=== PATIENT | female | born 1995 ===

== ENCOUNTER 2016-10-07 07:35 | Emergency (ER) | payer MEDICAID ==
[2016-10-07 07:55] VITALS: RESP 16; O2SAT 100
--- NOTE | 2016-10-07 08:36 | ED PDOC ---
HPI: Abdomen Time Seen by Provider: 10/07/16 07:45 Chief Complaint (Nursing): Abdominal Pain Chief Complaint (Provider): Abdominal Pain History Per: Patient History/Exam Limitations: no limitations Onset/Duration Of Symptoms: Hrs Current Symptoms Are (Timing): Still Present Severity: Mild Location Of Pain/Discomfort: Epigastric Quality Of Discomfort: Cramping, "Pain" Associated Symptoms: Nausea, Vomiting, Diarrhea Exacerbating Factors: None Alleviating Factors: None Additional Complaint(s): Patient is a 21 year old female who presents to ED for evaluation of abdominal pain that began last night. Pain is described as epigastric, constant, associated with nausea, vomiting and diarrhea. Notes pain has worsened, denies radiation of pain, fever, chills or bloody stools. Past Medical History Reviewed: Historical Data, Nursing Documentation, Vital Signs Vital Signs: Last Vital Signs Temp 97.3 F L 10/07/16 14:21 Pulse 78 10/07/16 14:21 Resp 16 10/07/16 14:21 BP 110/70 10/07/16 14:21 Pulse Ox 100 10/07/16 14:21 - Medical History PMH: Anemia (IRON DEFICIENCY), Asthma - Surgical History Surgical History: Tonsillectomy, - Family History Family History: States: No Known Family Hx - Living Arrangements Living Arrangements: With Family - Home Medications Home Medications: Ambulatory Orders Medication Instructions Recorded Cephalexin [Keflex] 500 mg PO BID #10 cap 10/26/14 Ibuprofen [Motrin] 600 mg PO Q6 PRN #10 tab 10/26/14 Ibuprofen [Motrin Tab] 600 mg PO Q6 #20 tab 06/22/15 Ondansetron ODT [Zofran ODT] 4 mg PO Q8 PRN #12 odt 10/07/16 - Allergies Allergies/Adverse Reactions: Allergies Allergy/AdvReac Type Severity Reaction Status Date / Time sulfamethoxazole Allergy unknown Verified 06/22/15 20:15 [From Bactrim] trimethoprim [From Bactrim] Allergy unknown Verified 06/22/15 20:15 Review of Systems ROS Statement: Except As Marked, All Systems Reviewed And Found Negative Constitutional: Negative for: Fever, Chills Cardiovascular: Negative for: Chest Pain Respiratory: Negative for: Shortness of Breath Gastrointestinal: Positive for: Nausea, Vomiting, Abdominal Pain, Diarrhea. Negative for: Melena, Hematochezia, Hematemesis Genitourinary Female: Negative for: Dysuria, Hematuria Musculoskeletal: Negative for: Back Pain Neurological: Negative for: Weakness, Numbness Physical Exam - Reviewed Nursing Documentation Reviewed: Yes Vital Signs Reviewed: Yes - Physical Exam Appears: Positive for: Non-toxic, No Acute Distress Skin: Positive for: Normal Color, Warm Eye Exam: Positive for: Normal appearance Neck: Positive for: Normal, Painless ROM Gastrointestinal/Abdominal: Positive for: Soft, Tenderness (mild peigastric). Negative for: Distended, Guarding, Rebound Back: Positive for: Normal Inspection Extremity: Positive for: Normal ROM Neurologic/Psych: Positive for: Alert, Oriented - Laboratory Results Result Diagrams: 10/07/16 08:38 10/07/16 08:38 - ECG O2 Sat by Pulse Oximetry: 100 (RA) Pulse Ox Interpretation: Normal (A) - Progress Re-evaluation Time: 14:00 Condition: Re-examined, Improved Medical Decision Making Medical Decision Making: Time: 0810 Initial impression: Abdominal pain r/o gastroenteritis vs pancreatitis vs other abdominal pathology considered Initial plan: -- CMP -- Lipase -- Urine preg -- Urine dip -- CBC -- Bentyl and Zofran Time: 1245 CT- Abdomen Impression: Nonspecific mesenteric adenitis. Mild fatty infiltration of the liver. Mild sigmoid diverticulitosis without evidence of diverticulitis. Minimal Fluid in cul-de-sac, non specific. No other significant abnormality. Scribe Attestation: Documented by Pamela Green acting as a scribe for Casper Joseph MD MD Scribe Attestation: All medical record entries made by the Scribe were at my direction and personally dictated by me. I have reviewed the chart and agree that the record accurately reflects my personal performance of the history, physical exam, medical decision making, and the department course for this patient. I have also personally directed, reviewed, and agree with the discharge instructions and disposition. Disposition - Clinical Impression Clinical Impression: Mesenteric adenitis, Abdominal pain in female - Patient ED Disposition Is Patient to be Admitted: No Doctor Will See Patient In The: Office Counseled Patient/Family Regarding: Studies Performed, Diagnosis, Need For Followup - Disposition Referrals: [facility] [Outside] Disposition: Routine/Home Disposition Time: 14:11 Condition: GOOD Additional Instructions: Take medications as instructed. Take advil for pain. Follow up with your PCP in 2-3 days. Prescriptions: Ondansetron ODT [Zofran ODT] 4 mg PO Q8 PRN #12 odt PRN Reason: Nausea/Vomiting Instructions: Gastroenteritis (ED), Mesenteric Adenitis (ED)
[2016-10-07 08:41] LABS: BASO % 0.5 % (0.0-2.0); EOS # 0.3 K/uL (0.0-0.7); EOS % 4.8 % (0.0-4.0); HEMATOCRIT 37.2 % (34.0-47.0); LYMPH # 1.6 K/uL (1.0-4.3); LYMPH % 22.6 % (20.0-40.0); MEAN CORPUSCULAR HEMOGLOBIN 25.3 pg (27.0-31.0); MEAN CORPUSCULAR HGB CONC 32.4 g/dL (33.0-37.0); MEAN PLATELET VOLUME 6.8 fl (7.2-11.7); MONO # 0.4 K/uL (0.0-0.8); MONO % 5.5 % (0.0-10.0); NEUT # 4.8 K/uL (1.8-7.0); NEUT % 66.6 % (50.0-75.0); RED CELL DISTRIBUTION WIDTH 14.6 % (11.5-14.5); WHITE BLOOD COUNT 7.3 K/uL (4.8-10.8)
[2016-10-07 08:57] LABS: ALB/GLOB RATIO 1.3 (1.0-2.1); ALKALINE PHOSPHATASE 60 U/L (38-126); ALT/SGPT 51 U/L (9-52); AST/SGOT 33 U/L (14-36); BILIRUBIN,TOTAL 0.6 mg/dl (0.2-1.3); BLOOD UREA NITROGEN 8 mg/dl (7-17); CALCIUM 9.4 mg/dL (8.4-10.2); CARBON DIOXIDE 25 mmol/L (22-30); CHLORIDE 103 mmol/L (98-107); GFR AFRICAN-AMERICAN > 60; GLUCOSE,RANDOM 97 mg/dL (65-105); LIPASE 47 U/L (23-300); SODIUM 139 mmol/l (132-148); TOTAL PROTEIN 7.9 G/DL (6.3-8.2)
[2016-10-07] MEDS ORDERED: Sodium Chloride 0.9% 50 ML IV ONE (11:37)
[2016-10-07] MEDS ORDERED: Iohexol 300 100 ML IJ ONE (11:37)
--- NOTE | 2016-10-07 12:24 | CT ---
PROCEDURE: CT Abdomen and Pelvis with contrast HISTORY: abdominal pain v/d COMPARISON: None. TECHNIQUE: Contrast dose: 100 mL Omnipaque 300 Radiation dose: Total exam DLP = 969.34 mGy-cm. This CT exam was performed using one or more of the following dose reduction techniques: Automated exposure control, adjustment of the mA and/or kV according to patient size, and/or use of iterative reconstruction technique. FINDINGS: LOWER THORAX: Unremarkable. LIVER: Normal size and contour. Diffusely diminished attenuation consistent with fatty infiltration. No mass. No biliary dilatation. GALLBLADDER AND BILE DUCTS: Unremarkable. PANCREAS: Unremarkable. No gross lesion or ductal dilatation. SPLEEN: Unremarkable. ADRENALS: Unremarkable. No mass. KIDNEYS AND URETERS: Unremarkable. No hydronephrosis. No solid mass. VASCULATURE: Unremarkable. No aortic aneurysm. BOWEL: Mild sigmoid diverticulosis. No evidence of diverticulitis. No bowel obstruction. No other abnormal bowel loops. APPENDIX: Normal appendix. PERITONEUM: Minimal fluid in cul-de-sac, nonspecific. LYMPH NODES: No retroperitoneal or pelvic lymphadenopathy. There are shotty subcentimeter nodes in the small bowel mesenteric and medial to the cecum and ascending colon, consistent with nonspecific mesenteric adenitis. BLADDER: Unremarkable. REPRODUCTIVE: Unremarkable uterus. No adnexal masses. BONES: No acute fracture. OTHER FINDINGS: None. IMPRESSION: Nonspecific mesenteric adenitis. Mild fatty infiltration of the liver. Mild sigmoid diverticulosis without evidence of diverticulitis. Minimal fluid in cul-de-sac, nonspecific. No other significant abnormality.
[2016-10-07 14:22] VITALS: BP 110/70; PULSE 78; TEMP 97.3
== END 2016-10-07 14:22 | disposition home or self-care (01) ==
LOC: H.ER 07:35
DX: I88.0 Nonspecific mesenteric lymphadenitis (principal); R10.9 Unspecified abdominal pain
CPT/HCPCS: 74177; 80053; 81025; 83690; 85025; 96374; 96375; 99282; J2270; J2405; Q9967

== ENCOUNTER 2016-10-09 01:35 | Emergency (ER) | payer MEDICAID ==
[2016-10-09 02:14] VITALS: BP 132/92; PULSE 76; RESP 17; TEMP 98.2; O2SAT 100
[2016-10-09 03:16] LABS: RBC URINE 2 /hpf (0-3); URINE BILIRUBIN NEGATIVE (NEGATIVE); URINE BLOOD MODERATE (NEGATIVE); URINE COLOR YELLOW (YELLOW); URINE GLUCOSE (UA) NEG (Normal); URINE KETONE NEGATIVE (NEGATIVE); URINE LEUKOCYTE ESTERASE NEG Leu/uL (Negative); URINE PROTEIN NEGATIVE (NEGATIVE); URINE UROBILINOGEN 0.2-1.0 mg/dL (0.2-1.0); WBC URINE < 1 /hpf (0-5)
[2016-10-09] MEDS ORDERED: Sodium Chloride 0.9% 1,000 ML IV STA (03:18)
[2016-10-09 03:25] LABS: BASO # 0.1 K/uL (0.0-0.2); BASO % 0.7 % (0.0-2.0); EOS # 0.4 K/uL (0.0-0.7); EOS % 5.4 % (0.0-4.0); HEMATOCRIT 35.8 % (34.0-47.0); LYMPH # 2.2 K/uL (1.0-4.3); MEAN CELL VOLUME 78.2 fl (81.0-99.0); MEAN CORPUSCULAR HEMOGLOBIN 25.8 pg (27.0-31.0); MEAN PLATELET VOLUME 7.1 fl (7.2-11.7); MONO # 0.6 K/uL (0.0-0.8); MONO % 7.5 % (0.0-10.0); NEUT # 4.7 K/uL (1.8-7.0); NEUT % 58.4 % (50.0-75.0); NRBC % 0.1 % (0.0-0.0); RED CELL DISTRIBUTION WIDTH 14.6 % (11.5-14.5)
[2016-10-09 03:42] LABS: ALB/GLOB RATIO 1.4 (1.0-2.1); ALKALINE PHOSPHATASE 55 U/L (38-126); ALT/SGPT 49 U/L (9-52); AST/SGOT 46 U/L (14-36); BILIRUBIN,TOTAL 0.4 mg/dl (0.2-1.3); BLOOD UREA NITROGEN 12 mg/dl (7-17); CARBON DIOXIDE 26 mmol/L (22-30); CHLORIDE 103 mmol/L (98-107); GFR AFRICAN-AMERICAN > 60; GLUCOSE,RANDOM 107 mg/dL (65-105); LIPASE 49 U/L (23-300); POTASSIUM 3.6 MMOL/L (3.6-5.0); SODIUM 140 mmol/l (132-148); TOTAL PROTEIN 7.9 G/DL (6.3-8.2)
--- NOTE | 2016-10-09 04:42 | ED PDOC ---
HPI: Abdomen Time Seen by Provider: 10/09/16 02:51 Chief Complaint (Nursing): Abdominal Pain Chief Complaint (Provider): Abdominal Pain History Per: Patient History/Exam Limitations: no limitations Onset/Duration Of Symptoms: Days (3 days) Outside of [place] travel?: No Current Symptoms Are (Timing): Still Present Location Of Pain/Discomfort: Epigastric Associated Symptoms: Vomiting (non bloody, non bilious), Diarrhea (non bloody) Additional Complaint(s): Lyndsey Soriano, a 21 year old female, who has a history of polycystic ovary disease, presents to the ED complaining of epigastric pain which she has been experiencing for the past 3 days. The patient reports she was seen in the Ed 2 days ago for non specific abdominal pain and was discharged. She says since then her symptoms have worsened. The patient states she has had non bloody diarrhea and 2-3 episodes of vomiting (non bloody, non bilious). Past Medical History Reviewed: Historical Data (Polycystic Ovary disease), Nursing Documentation, Vital Signs Vital Signs: Last Vital Signs Temp 98.2 F 10/09/16 02:09 Pulse 76 10/09/16 02:09 Resp 17 10/09/16 02:09 BP 132/92 H 10/09/16 02:09 Pulse Ox 100 10/09/16 07:15 - Medical History PMH: Anemia (IRON DEFICIENCY), Asthma Other PMH: Polycystic Ovary disease - Surgical History Surgical History: Tonsillectomy, - Family History Family History: States: Unknown Family Hx - Social History Current smoker - smoking cessation education provided: No Ex-Smoker (has not smoked in the last 12 months): No Alcohol: None Drugs: Denies - Home Medications Home Medications: Ambulatory Orders Medication Instructions Recorded Cephalexin [Keflex] 500 mg PO BID #10 cap 10/26/14 Ibuprofen [Motrin] 600 mg PO Q6 PRN #10 tab 10/26/14 Ibuprofen [Motrin Tab] 600 mg PO Q6 #20 tab 06/22/15 Ondansetron ODT [Zofran ODT] 4 mg PO Q8 PRN #12 odt 10/07/16 Dicyclomine [Bentyl] 20 mg PO Q12 PRN #20 tab 10/09/16 Ondansetron ODT [Zofran ODT] 4 mg PO Q6 PRN #16 odt 10/09/16 - Allergies Allergies/Adverse Reactions: Allergies Allergy/AdvReac Type Severity Reaction Status Date / Time sulfamethoxazole Allergy unknown Verified 06/22/15 20:15 [From Bactrim] trimethoprim [From Bactrim] Allergy unknown Verified 06/22/15 20:15 Review of Systems ROS Statement: Except As Marked, All Systems Reviewed And Found Negative Gastrointestinal: Positive for: Vomiting (2-3 episodes; non bloody, non bilious) , Abdominal Pain, Diarrhea (nn bloody diarrhea) Physical Exam - Reviewed Nursing Documentation Reviewed: Yes Vital Signs Reviewed: Yes - Physical Exam Appears: Positive for: Uncomfortable Head Exam: Positive for: ATRAUMATIC, NORMOCEPHALIC Skin: Positive for: Normal Color, Warm, Dry Eye Exam: Positive for: Normal appearance, EOMI, PERRL ENT: Positive for: Normal ENT Inspection Neck: Positive for: Normal Cardiovascular/Chest: Positive for: Regular Rate, Rhythm, Chest Non Tender. Negative for: Tachycardia Respiratory: Positive for: Normal Breath Sounds. Negative for: Wheezing, Respiratory Distress Gastrointestinal/Abdominal: Positive for: Normal Exam, Soft, Tenderness ( epigastric tenderness) Back: Positive for: Normal Inspection. Negative for: L CVA Tenderness, R CVA Tenderness Extremity: Positive for: Normal ROM, Deformity. Negative for: Swelling Neurologic/Psych: Positive for: Alert, Oriented - Laboratory Results Result Diagrams: 10/09/16 03:20 10/09/16 03:20 - ECG O2 Sat by Pulse Oximetry: 100 (RA) Pulse Ox Interpretation: Normal Medical Decision Making Medical Decision Makin:51 Initial Impression: 21 year old female with abdominal pain, vomiting and diarrhea Initial Plan: * Bentyl 20mg PO * Toradol 10mg IVP * Morphine 2 mg IVP * Zofran inj 4mg IV * Sodium chloride 0.9% 1000mls/hr * reevaluation 0629 US Pelvis Complete, Transabdominal No acute findings. Patient is stable and ready to be discharged home. Patient was advised to follow up with PCP. Dx: Abdominal Pain Rx: Bentyl and zofran Condition: Stable Scribe Attestation: Documented by Mariam Lewis acting as a scribe for Ana Armando MD. MD Wright Attestation: All medical record entries made by the Scribe were at my direction and personally dictated by me. I have reviewed the chart and agree that the record accurately reflects my personal performance of the history, physical exam, medical decision making, and the department course for this patient. I have also personally directed, reviewed, and agree with the discharge instructions and disposition. Disposition - Clinical Impression Clinical Impression: Abdominal pain Counseled Patient/Family Regarding: Studies Performed, Diagnosis, Need For Followup - Disposition Referrals: Janey Branham MD [Primary Care Provider] - Disposition: Routine/Home Disposition Time: 06:30 Condition: STABLE Prescriptions: Dicyclomine [Bentyl] 20 mg PO Q12 PRN #20 tab PRN Reason: abdominal pain Ondansetron ODT [Zofran ODT] 4 mg PO Q6 PRN #16 odt PRN Reason: Nausea/Vomiting
--- NOTE | 2016-10-09 06:29 | US ---
EXAM: US Pelvis Complete, Transabdominal CLINICAL HISTORY: 21 years old, female; Pain; Pelvic pain; Additional info: Abd pain TECHNIQUE: Real-time transabdominal pelvic ultrasound (complete) with image documentation. COMPARISON: No relevant prior studies available. FINDINGS: Uterus/cervix: Uterus measures 9.7 x 3.1 x 4.5 cm in size. No myometrial mass. Endometrium: 0.4 cm in thickness. Right ovary: 3.0 x 1.7 x 2.9 cm in size. No mass. Small follicles. Normal flow. Left ovary: 3.4 x 1.8 x 2.4 cm in size. No mass. Small follicles. Normal flow. Free fluid: No significant free fluid. IMPRESSION: 1.No acute findings. 2.Non-acute findings are described above.
== END 2016-10-09 07:05 | disposition home or self-care (01) ==
LOC: H.ER 01:35
DX: R10.13 Epigastric pain (principal); R11.10 Vomiting, unspecified; R19.7 Diarrhea, unspecified; J45.909 Unspecified asthma, uncomplicated; E28.2 Polycystic ovarian syndrome
CPT/HCPCS: 76856; 80053; 81003; 81025; 83690; 85025; 96361; 96374; 96375; 96376; 99283; J1885; J2270; J2405; J7040

== ENCOUNTER 2017-08-09 13:14 | Emergency (ER) | payer MEDICAID ==
[2017-08-09 13:25] VITALS: BP 129/75; PULSE 95; RESP 16; TEMP 98; O2SAT 100
--- NOTE | 2017-08-09 14:15 | ED PDOC ---
HPI: Skin/Bite Injury Time Seen by Provider: 08/09/17 13:46 Chief Complaint (Nursing): Abnormal Skin Integrity Chief Complaint (Provider): Rash History Per: Patient History/Exam Limitations: no limitations Onset/Duration Of Symptoms: Hrs (x6 hours) Location Of Injury: Posterior: Neck Additional Complaint(s): 21 year old female presents to ED with complaints of a rash x6 hours and has no past medical history. Patient localizes rash to the posterior aspect of her neck. Notes concern about relation to STIs/HIV, though she denies any possible exposure. Denies using any new shampoos. [employer] Clerk: [facility] Past Medical History Reviewed: Historical Data, Nursing Documentation, Vital Signs Vital Signs: Last Vital Signs Temp 98.0 F 08/09/17 13:22 Pulse 95 H 08/09/17 13:22 Resp 16 08/09/17 13:22 BP 129/75 08/09/17 13:22 Pulse Ox 100 08/09/17 14:24 - Medical History PMH: Anemia (IRON DEFICIENCY), Asthma - Surgical History Surgical History: Tonsillectomy, - Family History Family History: States: Other Other Family History: Sister has psoriasis - Home Medications Home Medications: Ambulatory Orders Medication Instructions Recorded Cephalexin [Keflex] 500 mg PO BID #10 cap 10/26/14 Ibuprofen [Motrin] 600 mg PO Q6 PRN #10 tab 10/26/14 Ibuprofen [Motrin Tab] 600 mg PO Q6 #20 tab 06/22/15 Ondansetron ODT [Zofran ODT] 4 mg PO Q8 PRN #12 odt 10/07/16 Dicyclomine [Bentyl] 20 mg PO Q12 PRN #20 tab 10/09/16 Ondansetron ODT [Zofran ODT] 4 mg PO Q6 PRN #16 odt 10/09/16 Hydrocortisone 1% Cream [Cortizone 30 applic TOP BID #1 tube 08/09/17 1% Cream] - Allergies Allergies/Adverse Reactions: Allergies Allergy/AdvReac Type Severity Reaction Status Date / Time sulfamethoxazole Allergy unknown Verified 08/09/17 13:22 [From Bactrim] trimethoprim [From Bactrim] Allergy unknown Verified 08/09/17 13:22 Review of Systems ROS Statement: Except As Marked, All Systems Reviewed And Found Negative Skin: Positive for: Rash (rash on posterior neck) Physical Exam - Reviewed Nursing Documentation Reviewed: Yes Vital Signs Reviewed: Yes - Physical Exam Appears: Positive for: Non-toxic, No Acute Distress Skin: Positive for: Warm, Dry, Rash (mild, dry, pruritic rash to the right dorsal aspect of neck. Rash is non-vascular and macular.) Neurologic/Psych: Positive for: Alert, Oriented - ECG O2 Sat by Pulse Oximetry: 100 (RA) Pulse Ox Interpretation: Normal Medical Decision Making Medical Decision Makin Initial impression: dermatitis r/o psoriasis Initial plan: * Dexamethasone 10mg PO * Re-eval Scribe Attestation: Documented by Meagan Mckinnon, acting as a scribe for Tyree Rao PA-C. Provider Scribe Attestation: All medical record entries made by the Scribe were at my direction and personally dictated by me. I have reviewed the chart and agree that the record accurately reflects my personal performance of the history, physical exam, medical decision making, and the department course for this patient. I have also personally directed, reviewed, and agree with the discharge instructions and disposition. Disposition - Clinical Impression Clinical Impression: Dermatitis, Psoriasis - Disposition Referrals: Private, [employer] [Other] Disposition Time: 14:36 Condition: GOOD Prescriptions: Hydrocortisone 1% Cream [Cortizone 1% Cream] 30 applic TOP BID #1 tube Instructions: Eczema (Atopic Dermatitis) (DC), Psoriasis (DC) Forms: [employer] (Finnish)
[2017-08-09] MEDS ORDERED: Dexamethasone 4 mg/1 ml ONE (14:26)
== END 2017-08-09 14:43 | disposition home or self-care (01) ==
LOC: H.ER 13:14
DX: L30.9 Dermatitis, unspecified (principal); L40.9 Psoriasis, unspecified; J45.909 Unspecified asthma, uncomplicated
CPT/HCPCS: 96372; 99281; J1100